=== PATIENT | male | born 1980 | race Caucasian/White ===

== ENCOUNTER 2016-12-06 11:30 | Emergency (ER) | payer BC ==
--- NOTE | 2016-12-06 12:50 | ED ---
Lower Extremity - HPI Summary HPI Summary: Pt here w/ LLE pain. Has a known clot here since having Lt knee meniscal surgery on Oct 17. The following day he "threw (his) back out" and was much more sedentary. Had Lt calf pain x 3 days and eventually went to ED on - dx'd w/ DVT and started on xarelto 15g BID. He completed this course then picked up a rx for xarelto 20mg daily. Reports he's missed at least 3 days and possibly 6 doses of this medication since starting it in the middle of October. He also admits to being quite sedentary and missing PT due to the holidays. He's here today as his Lt calf pain is worse and swelling as increased from original site into popliteal space since yesterday. When asked if he's having chest pain, he reports he does have Lt side chest discomfort but he's had this over the past 4 months and states it's from a back issue he's been dealing with - has a bad mattress. Pain is worse w/ shoulder movement and palpation of certain muscles. Feels like muscle soreness/strain. Better w/ massage and stretching. When asked if he's had SOB, states he's had a URI w/ cough and "wheezing" but no aditi SOB, no hemoptysis. Has associated sx of head congestion and rhinorrhea - "bad allergies" and has been taking anti-histamines daily. Mouth has been dry despite drinking lots of water each day. Denies fever, chills, increased heart rate, back pain. He has some stress as he's preparing for an interview in [place] and plans to fly out tomorrow. Per pt, his PCP has okay'd this travel at his last f/u appt but sx today are new and started yesterday. 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 s/p knee surgery Sep 2017 Denies: Hx Diabetes Cardiovascular History: Denies: Hx Hypertension Respiratory History: Denies: Hx Pulmonary Embolism - CTA in Sep 2017 History: Denies: Hx Renal Disease Musculoskeletal History: Reports: Other Musculoskeletal History - SEP 2017 - Lt knee meniscal surgery Infectious Disease History: No Infectious Disease History: Denies: Traveled Outside the [place] in Last 30 Days - Family History Known Family History: Positive: None - Social History Lives: With Family Alcohol Use: None Hx Substance Use: No Substance Use Type: Reports: None Hx Tobacco Use: No Smoking Status (MU): Never Smoked Tobacco <Yasemin Gilmore - Last Filed: 12/06/16 14:36> Review of Systems Negative: Fever, Chills Positive: Nasal Discharge - nasal congestion - bad allergies Negative: Chest Pain Positive: Cough - see HPI. Negative: Shortness Of Breath Negative: Abdominal Pain, Vomiting, Diarrhea, Nausea Positive: no symptoms reported Musculoskeletal: Other - Lt chest/upper back/neck soreness/tightness x 4 months - feels muscular from sitting/typing too much Negative: Bruising Neurological: Negative Negative: Weakness, Paresthesia, Numbness Positive: Anxious - under stress w/ job interview pending, young child at home All Other Systems Reviewed And Are Negative: Yes <Yasemin Gilmore - Last Filed: 12/06/16 14:36> Physical Exam Triage Information Reviewed: Yes Vital Signs On Initial Exam: Initial Vitals Temp Pulse Resp BP Pulse Ox 98.3 F 79 16 148/93 98 12/06/16 11:40 12/06/16 11:40 12/06/16 11:40 12/06/16 11:40 12/06/16 11:40 Vital Signs Reviewed: Yes Appearance: Positive: Well-Appearing, No Pain Distress, Well-Nourished Skin: Positive: Warm, Dry - no erythema over affected area Head/Face: Positive: Normal Head/Face Inspection Eyes: Positive: Normal, EOMI ENT: Positive: Hearing grossly normal, Pharynx normal Respiratory/Lung Sounds: Positive: Clear to Auscultation, Breath Sounds Present. Negative: Rales, Rhonchi, Wheezes Cardiovascular: Positive: Normal, RRR, Pulses are Symmetrical in both Upper and Lower Extremities, Other - + Art's Lt calf; popliteal fossa also w/ TTP, S1, S2. Negative: Leg Edema Left, Leg Edema Right Abdomen Description: Positive: Nontender, Soft Bowel Sounds: Positive: Present Musculoskeletal: Positive: Normal, Strength/ROM Intact, Pain @ - Lt popliteal fossa TTP Neurological: Positive: Normal, Sensory/Motor Intact, Alert, Oriented to Person Place, Time, CN Intact II-III Psychiatric: Positive: Anxious - but pleasant, cooperative <Yasemin Gilmore - Last Filed: 12/06/16 14:36> Vital Signs On Initial Exam: Initial Vitals Temp Pulse Resp BP Pulse Ox 98.3 F 79 16 148/93 98 12/06/16 11:40 12/06/16 11:40 12/06/16 11:40 12/06/16 11:40 12/06/16 11:40 <Debbi Villarreal - Last Filed: 12/12/16 10:42> Diagnostics - Vital Signs Vital Signs Temp Pulse Resp BP Pulse Ox 12/06/16 11:40 98.3 F 79 16 148/93 98 <Yasemin Gilmore - Last Filed: 12/06/16 14:36> - Vital Signs Vital Signs Temp Pulse Resp BP Pulse Ox 12/06/16 14:56 98.1 F 78 15 138/73 12/06/16 11:40 98.3 F 79 16 148/93 98 <Debbi Villarreal - Last Filed: 12/12/16 10:42> Lower Extremity Course/Dx - Course Course Of Treatment: Pt's clinical presentation is suspicious for increased swelling of tissue around the knee most likely sencondary to recetn knee surgery as he's been sedentary and not performing knee exercises. He's also been sitting in a chair, inhibiting blood return to some extent. His DVT is unchanged from previous U/S in September despite lack of exercise and intermittent missed doses of xarelto. No PE sx today. Advised he continue xarelto as directed by PCP (20mg daily) and return to ED if he develops danger s /sx. Pt agrees w/ plan. - Physician Notifications Discussed Care of Patient With: Dr. Villarreal <Yasemin Gilmore - Last Filed: 12/06/16 14:36> <Debbi Villarreal - Last Filed: 12/12/16 10:42> - Diagnoses Provider Diagnoses: Lower leg DVT (deep venous thromboembolism), chronic Discharge <Yasemin Gilmore - Last Filed: 12/06/16 14:36> <Debbi Villarreal - Last Filed: 12/12/16 10:42> - Discharge Plan Condition: Stable Disposition: HOME Patient Education Materials: Leg Edema (ED) Referrals: Chevy Baer MD [Primary Care Provider] - Additional Instructions: Your DVT appears to be in the same position and no worse from previous study in September. It is advised that you take your Xarelto 20mg daily as directed. It is also important that you perform your knee PT as directed and stay moving, stay hydrated and elevate leg for rest when possible. Follow-up with PCP as directed. *if you develop chest pain, shortness of breath, bloody cough, back pain, or increased heart rate return to ED Attestations Scribe Attestation: I was available for consult. This patient was seen by the advanced practice provider. The patient was seen by, or examined by me. User Type: Provider <Debbi Villarreal - Last Filed: 12/12/16 10:42>
--- NOTE | 2016-12-06 14:19 | RAD ---
HISTORY: Left leg pain and edema COMPARISONS: October 23, 2016 TECHNIQUE: Multiple transverse and longitudinal ultrasound images were obtained of the left lower extremity from the level of the common femoral vein inferiorly through to the infrapopliteal veins using grayscale, color Doppler, and spectral Doppler imaging with and without compression and with augmentation. Comparison images were obtained of the contralateral common femoral vein. FINDINGS: VEINS: The gastrocnemius veins are noncompressible, with flow noted, consistent with chronic, recanalized nonocclusive thrombus. The major of the venous system of the left lower extremity is compressible throughout its course, with normal flow on color Doppler imaging and normal response to augmentation on spectral Doppler imaging. SOFT TISSUES: Unremarkable. OTHER FINDINGS: None. IMPRESSION: CHRONIC APPEARING THROMBUS WITHIN THE GASTROCNEMIUS VEINS WITHOUT EXTENSION TO THE DEEP VENOUS SYSTEM OF THE LEFT LOWER EXTREMITY
[2016-12-06 14:58] VITALS: BP 138/73
== END 2016-12-06 14:56 | disposition home or self-care (01) ==
LOC: ED 11:30
DX: I82.4Z2 Acute embolism and thrombosis of unspecified deep veins of left distal lower extremity (principal)
CPT/HCPCS: 99282